=== PATIENT | male | born 1990 | race Caucasian/White ===

== ENCOUNTER 2017-08-02 03:50 | Emergency (ER) | payer OTHER ==
[~2017-08-02] VITALS: Ht 180.3 cm; Wt 77.1 kg
== END 2017-08-02 04:35 | disposition home or self-care (01) ==
LOC: ER 03:50
DX: T69.8XXA Other specified effects of reduced temperature, initial encounter (principal); M79.671 Pain in right foot; M79.672 Pain in left foot; Z59.0 Homelessness; F17.210 Nicotine dependence, cigarettes, uncomplicated; X31.XXXA Exposure to excessive natural cold, initial encounter; Y93.89 Activity, other specified; Y92.89 Other specified places as the place of occurrence of the external cause; Y99.8 Other external cause status